=== PATIENT | female | born 1990 | race Caucasian/White ===

== ENCOUNTER 2017-04-06 17:31 | Emergency (ER) | payer OTHER ==
[~2017-04-06] VITALS: Ht 160 cm; Wt 86.2 kg
[2017-04-06] MEDS ORDERED: IBUPROFEN 600600 M1 PO (18:40)
[2017-04-06 18:54] VITALS: BP 115/74
[2017-04-06] MEDS ORDERED: LITHIUM CARBON300 M6 PO (19:00)
[2017-04-06] MEDS ORDERED: VALIUM5 MG PO (19:00)
[2017-04-06] MEDS ORDERED: VALTREX 500 MG500 MG PO (19:07)
== END 2017-04-06 19:10 | disposition home or self-care (01) ==
LOC: ER 17:31
DX: S09.90XA Unspecified injury of head, initial encounter (principal); F10.99 Alcohol use, unspecified with unspecified alcohol-induced disorder; Z88.7 Allergy status to serum and vaccine; Z88.1 Allergy status to other antibiotic agents; W18.09XA Striking against other object with subsequent fall, initial encounter; Y93.89 Activity, other specified; Y92.89 Other specified places as the place of occurrence of the external cause; Y99.8 Other external cause status